=== PATIENT | female | born 1940 | race American Indian/Alaskan Native ===

== ENCOUNTER 2016-11-30 11:32 | Outpatient (CLI) | payer MEDICARE ==
--- NOTE | 2016-11-30 13:49 | Mammography Report ---
BONE DEXA:11/30/16 11:32:00 CLINICAL: Postmenopausal. No comparison. TECHNIQUE: Two site bone DEXA performed on an Hologic scanner. FINDINGS: The average BMD of the lumbar spine L1-L4 is 1.059g/cm squared with a T-score of -0.8 and a Z-score of +1.8. The average BMD of the left hip is 0.970g/cm squared with a T-score of -0.4 and a Z-score of +0.9. IMPRESSION: 1. WHO classification: Normal with average fracture risk based on lumbar spine measurements. 2. WHO classification: Osteopenia with increased fracture risk based on left hip measurements. RECOMMENDATION: Clinical correlation and routine screening. DEFINITIONS: BMD = Bone Mineral Density T-score = BMD related to mean peak bone mass of young adult (mean expressed in Standard Deviation) Z-score = Age matched BMD expressed in SD World Health Organization (WHO) Diagnostic Criteria Normal T-score > -1 SD Osteopenia T-score between -1 and -2.4 SD Osteoporosis T-score -2.5 SD or below NOTE: BMD is not the only risk factor for fracture. One should also consider factors such as the patient's age, risk of falling, previous osteoporotic fracture, family history of osteoporotic fractures, current smoker, and low body weight. Z-scores are not calculated if >80 years of age.
== END 2016-11-30 11:33 | disposition home or self-care (01) ==
LOC: SPVWC 11:32
PROVIDERS: ATTEND Family Medicine
DX: M85.88 Other specified disorders of bone density and structure, other site (principal); Z78.0 Asymptomatic menopausal state
CPT/HCPCS: 77080

== ENCOUNTER 2018-09-12 10:51 | Day surgery (SDC) | payer MEDICARE ==
[2018-09-12] MEDS ORDERED: LACTATED RINGERS 1,000 ML IV SCH (11:12)
[2018-09-12] MEDS ORDERED: SUBLIMAZE IV PRN (11:33)
[2018-09-12] MEDS ORDERED: ZOFRAN IV PRN (11:33)
--- NOTE | 2018-09-12 11:34 | Anesthesia Day of Surgery ---
Anesthesia Day of Surgery - Day of Surgery Patient Examined: Yes Patient H&P Reviewed: Yes Patient is NPO: Yes
--- NOTE | 2018-09-12 11:39 | Anesthesia Consultation ---
Anesthesia Consult and Med Hx Date of service: 09/12/18 - Airway Anesthetic Teeth Evaluation: Chipped ROM Head & Neck: Adequate Mental/Hyoid Distance: Adequate Mallampati Class: Class II Intubation Access Assessment: Probably Good - Pre-Operative Health Status ASA Pre-Surgery Classification: ASA2 Proposed Anesthetic Plan: General - Pulmonary Hx Smoking: Yes (STOPPED 1971) Hx Sleep Apnea: No (FARNAZ PRE SCREEN LOW RISK.) - Cardiovascular System Hx Hypertension: Yes (X 5 YRS) - Endocrine Hx Renal Disease: Yes (CKD stage III) Hx Non-Insulin Dependent Diabetes: Yes - Hematic Hx Anemia: Yes - Other Systems Hx Cancer: Yes (L breast-no IV/BP LUE) - Additional Comments Anesthesia Medical History Comments: +Medical clearance
[2018-09-12] MEDS ORDERED: MITOMYCIN UD NR ×3 (12:00→15:00)
[2018-09-12] MEDS ORDERED: WATER FOR INJ UD NR ×3 (12:00→15:00)
[2018-09-12] MEDS ORDERED: VERSED IV NR (12:00)
[2018-09-12] MEDS ORDERED: SUBLIMAZE ONE (12:59)
[2018-09-12] MEDS ORDERED: XYLOCAINE MPF 2% ONE (13:00)
[2018-09-12] MEDS ORDERED: DIPRIVAN 10 MG/ML IV ONE (13:00)
[2018-09-12] MEDS ORDERED: ANCEF/STERILE WATER 2 GM/20 ML IV NR (14:00)
[2018-09-12] MEDS ORDERED: ZOFRAN ONE (14:54)
[2018-09-12] MEDS ORDERED: PHENYLEPHRINE/NS Syringe 1,000 MCG/10 ML IV ONE ×2 (15:05→15:36)
[2018-09-12] MEDS ORDERED: METHYLENE BLUE ONE (15:07)
[2018-09-12] MEDS ORDERED: WATER FOR IRRIG STERILE IR ONE ×2 (15:08)
--- NOTE | 2018-09-12 17:16 | Fluoroscopy Report ---
INTRAOPERATIVE FLUOROSCOPY: BILATERAL RETROGRADE PYELOGRAMS INDICATION / CLINICAL INFORMATION: BLADDER TUMOR. TECHNIQUE: Intraoperative spot images were obtained during the procedure. FINDINGS: An 8 mm calcification overlies the left kidney on the shot fireman x-ray. Both ureters were cannulated and i njected. The right ureter and intrarenal collecting system appear within normal limits. The left uret er appears unremarkable without filling defect. The left intrarenal collecting system was not opacifi ed and therefore could not be evaluated. IMPRESSION: 1. Left nephrolithiasis. 2. Left intrarenal collecting system not evaluated. Fluoroscopy Time: 2.9 minutes. Fluoroscopy Images: 6. Signer Name: Miguel Randall MD Signed: 09/12/2018 5:11 PM Workstation Name: [id number]
--- NOTE | 2018-09-12 17:55 | Short Stay Summary ---
Short Stay Documentation Date of service: 09/12/18 - History H&P: obtained from office - Allergies and Medications Current Medications: Allergies codeine Allergy (Verified 08/30/18 11:20) Shortness of Breath Home Medications Medication Instructions Recorded Confirmed Last Taken Type Ferrous Sulfate [Ferrous Sulfate 324 mg PO DAILY 08/30/18 08/30/18 09/11/18 History 324 MG] Lisinopril [Zestril TAB] 10 mg PO QDAY 08/30/18 08/30/18 09/11/18 History Metformin HCl [metFORMIN] 1,000 mg PO BID 08/30/18 09/12/18 09/10/18 History Pravastatin [Pravachol] 40 mg PO QHS 08/30/18 08/30/18 09/11/18 History glipiZIDE [Glucotrol] 5 mg PO BID 08/30/18 08/30/18 09/11/18 History hydroCHLOROthiazide [HCTZ] 25 mg PO QDAY 08/30/18 08/30/18 09/11/18 History Active Medications Fentanyl (Sublimaze) 50 mcg IV Q5MIN PRN PRN Reason: Pain , Severe (7-10) Stop: 09/12/18 20:00 Lactated Ringer's (Lactated Ringers) 1,000 mls @ 75 mls/hr IV DIRECT KANCHAN Last Admin: 09/12/18 11:50 Dose: 75 mls/hr Documented by: Midazolam HCl (Versed) 2 mg IV PREOP NR Stop: 09/12/18 23:59 Last Admin: 09/12/18 12:15 Dose: 2 mg Documented by: Ondansetron HCl (Zofran) 4 mg IV ONCE PRN PRN Reason: Nausea And Vomiting - Physical exam General appearance: no acute distress - Brief post op/procedure progress note Date of procedure: 09/12/18 Pre-op diagnosis: bladder mass Post-op diagnosis: same Procedure: TURBT, bx rpg Anesthesia: GETA 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
[2018-09-12] MEDS ORDERED: WATER FOR IRRIG STERILE ONE (18:12)
[2018-09-12 20:46] VITALS: BP 164/88
--- NOTE | 2018-09-13 09:50 | Post Anesthesia Evaluation ---
- Post Anesthesia Evaluation Patient Participated: Yes Airway Patent: Yes Stable Respiratory Function: Yes Nausea/Vomiting: No Temp > 96.8F: Yes Pain Manageable: Yes Adequeate Hydration: Yes Anesthesia Complications: No Block Receding Appropriately: Not Applicable Patient on Ventilator: No
--- NOTE | 2018-09-28 13:45 | Operative Report ---
PREOPERATIVE DIAGNOSIS: Bladder tumor. POSTOPERATIVE DIAGNOSIS: Bladder tumor. PROCEDURE: Cystoscopy, bilateral RPG, transurethral resection of bladder tumor. SURGEON: Eduin Quiroga MD ANESTHESIA: General. SPECIMENS: Bladder tumor. ESTIMATED BLOOD LOSS: Minimal. COMPLICATIONS: None. FINDINGS: Bladder tumor, especially extending from the left bladder neck overlying the left ureteral orifice, papillary tumor and then extending some on the right bladder neck. Additionally, at the base of the bladder, there were some low-grade raised areas which looked suspicious for the papillary tumor extending throughout the bladder base and extending laterally and posteriorly to the bladder base from the right side and this was low level superficial appearing, but extensive area covered. At this point, right UO identified. Contrast injected. Normal right distal ureter, proximal ureter, renal pelvis and calyces, no filling defects or hydronephrosis. Left UO identified, but difficult to contrast injected. Normal left distal ureter, proximal ureter, renal pelvis. No filling defects or hydro. TUR 24-Urdu resection scope with obturator passed. Resection loop inserted. At this point, we began our resection. We resected extending from the intramural ureter to the left bladder neck and then towards the extending from about the patient, from my 11:00 to the 6 o'clock position. Resected bladder tumor was extending towards the urethra and the bladder neck, fulgurated some areas, resected some that extended just up to the ureteral orifice and made some overlying extending more medial to the ureteral orifice and adjacent areas were cauterized. Some areas were biopsied and resected extending towards the right bladder neck. All these areas were cauterized, but due to the extensive amount of some possible low level areas extending throughout the bladder base extending all the way posteriorly and laterally, I elected to stop at this point, cauterized the areas and then wait for the pathology. It did seem that some of the resection was deep enough to get adequate tissue. The area was cauterized. Bladder irrigated multiple times. Moreno inserted, mitomycin 40 mg inserted in the bladder, clamped under standard protocol and then the patient was sent to the postanesthesia care unit in good and stable condition. PLAN: We will drain mitomycin in recovery and then sent the patient home with followup for pathology. JOB# [id number] ATS/NTS
== END 2018-09-12 10:52 | disposition home or self-care (01) ==
LOC: OR 10:51
PROVIDERS: ATTEND Urology
DX: C67.5 Malignant neoplasm of bladder neck (principal); C67.6 Malignant neoplasm of ureteric orifice; N20.0 Calculus of kidney; E78.2 Mixed hyperlipidemia; I12.9 Hypertensive chronic kidney disease with stage 1 through stage 4 chronic kidney disease, or unspecified chronic kidney disease; E11.22 Type 2 diabetes mellitus with diabetic chronic kidney disease; N18.3 Chronic kidney disease, stage 3 (moderate); E11.40 Type 2 diabetes mellitus with diabetic neuropathy, unspecified; E78.00 Pure hypercholesterolemia, unspecified; Z85.3 Personal history of malignant neoplasm of breast; Z79.84 Long term (current) use of oral hypoglycemic drugs; Z88.5 Allergy status to narcotic agent; Z79.899 Other long term (current) drug therapy; Z87.891 Personal history of nicotine dependence; Z90.710 Acquired absence of both cervix and uterus; Z98.890 Other specified postprocedural states; Z86.2 Personal history of diseases of the blood and blood-forming organs and certain disorders involving the immune mechanism
CPT/HCPCS: 52235; 52500; 74420; 82962; 86850; 86900; 86901; 88305; 88341; 88342; A4217; C1758; C1769; J0690; J2250; J2370; J2405; J2704; J3010; J7120; J9280; Q9967; Q9968; 88307